=== PATIENT | male | born 1955 ===

== ENCOUNTER 2017-03-29 13:35 | Emergency (ER) | payer MEDICARE ==
[2017-03-29 13:35] VITALS: BMI 29.0
[2017-03-29 14:05] VITALS: BP 96/64; PULSE 101; RESP 18; TEMP 98; O2SAT 96
[2017-03-29 14:53] LABS: BASO # 0.1 K/uL (0.0-0.2); BASO % 0.8 % (0.0-2.0); EOS # 0.3 K/uL (0.0-0.7); LYMPH # 2.9 K/uL (1.0-4.3); LYMPH % 27.6 % (20.0-40.0); MEAN CELL VOLUME 85.6 fL (80.0-94.0); MEAN CORPUSCULAR HEMOGLOBIN 29.5 pg (27.0-31.0); MEAN CORPUSCULAR HGB CONC 34.4 g/dL (33.0-37.0); MEAN PLATELET VOLUME 8.1 fL (7.2-11.7); MONO # 0.7 K/uL (0.0-0.8); MONO % 6.8 % (0.0-10.0); NRBC % 0.3 % (0.0-2.0); RED CELL DISTRIBUTION WIDTH 15.2 % (11.5-14.5); WHITE BLOOD COUNT 10.4 K/uL (4.8-10.8)
--- NOTE | 2017-03-29 14:55 | RAD ---
PROCEDURE: CHEST RADIOGRAPH, 1 VIEW HISTORY: chest pain COMPARISON: 08/11/2015 FINDINGS: LUNGS: Clear. PLEURA: No pneumothorax or pleural fluid seen. CARDIOVASCULAR: Normal. OSSEOUS STRUCTURES: No significant abnormalities. VISUALIZED UPPER ABDOMEN: Normal. OTHER FINDINGS: None. IMPRESSION: No active disease.
--- NOTE | 2017-03-29 14:57 | C.PDOC ---
History Of Present Illness 61 yr old male with PMHx of diabetes, hypertension and high cholesterol, presents to [facility] ER for evaluation of left sided vague chest pain, associated with weakness and SOB. Patient states he has had the symptoms for 1 day with gradual improvement but the symptoms are still present. Patient denies history of heart stent placement, fever, chills, nausea, vomiting, abdominal pain, headache or dizziness. Time Seen by Provider: 03/29/17 14:22 Chief Complaint (Nursing): Chest Pain History Per: Patient History/Exam Limitations: no limitations Onset/Duration Of Symptoms: Days (1) Past Medical History Reviewed: Historical Data, Nursing Documentation, Vital Signs Vital Signs: Last Vital Signs Temp 98 F 03/29/17 14:02 Pulse 101 H 03/29/17 14:02 Resp 18 03/29/17 14:02 BP 96/64 L 03/29/17 14:02 Pulse Ox 96 03/29/17 15:51 - Medical History PMH: Anxiety, Asthma (LAST ATTACK YEARS AGO), CAD, Depression, Diabetes (type 2) , HTN, Hypercholesterolemia, Seizures Family History: States: No Known Family Hx - Social History Hx Tobacco Use: Yes (light smoker) Hx Alcohol Use: No Hx Substance Use: No - Immunization History Hx Tetanus Toxoid Vaccination: Yes Hx Influenza Vaccination: Yes Hx Pneumococcal Vaccination: Yes Review Of Systems Except As Marked, All Systems Reviewed And Found Negative. Constitutional: Negative for: Fever, Chills Cardiovascular: Positive for: Chest Pain (Vague left sided) Respiratory: Positive for: Shortness of Breath Gastrointestinal: Negative for: Nausea, Vomiting, Abdominal Pain Neurological: Negative for: Headache, Dizziness Physical Exam - Physical Exam Appears: Non-toxic, No Acute Distress Skin: Warm, Dry Head: Atraumatic, Normacephalic Eye(s): bilateral: Normal Inspection, PERRL, EOMI Oral Mucosa: Moist Chest: Symmetrical, No Tenderness Cardiovascular: Rhythm Regular, No Murmur Respiratory: Normal Breath Sounds, No Rales, No Rhonchi, No Stridor, No Wheezing Gastrointestinal/Abdominal: Normal Exam, Soft, No Tenderness, No Guarding, No Rebound Extremity: Normal ROM, No Swelling Neurological/Psych: Oriented x3, Normal Speech, Normal Motor ED Course And Treatment - Laboratory Results Result Diagrams: 03/29/17 14:50 03/29/17 14:50 ECG: Interpreted By Me, Viewed By Me ECG Rhythm: Sinus Rhythm ECG Interpretation: Normal Interpretation Of ECG: Normal intervals. Normal axis. No ST/T wave abnormalities. Rate From EC (BPM) O2 Sat by Pulse Oximetry: 96 (RA) Pulse Ox Interpretation: Normal - Other Rad CXR X-Ray: Viewed By Me, Read By Radiologist Interpretation: PROCEDURE: CHEST RADIOGRAPH, 1 VIEW. HISTORY: chest pain. COMPARISON: 08/11/2015. FINDINGS: LUNGS: Clear. PLEURA: No pneumothorax or pleural fluid seen. CARDIOVASCULAR: Normal. OSSEOUS STRUCTURES: No significant abnormalities. VISUALIZED UPPER ABDOMEN: Normal. OTHER FINDINGS: None. IMPRESSION: No active disease. Medical Decision Making Medical Decision Making: IMPRESSION: Chest pain PLAN: * CXR * EKG * Troponin * CBC * CMP * BNP * Aspirin PO Disposition Counseled Patient/Family Regarding: Studies Performed, Diagnosis, Need For Followup - Disposition Referrals: Galo Wiggins MD [Staff Provider] - Disposition: AGAINST MEDICAL ADVICE Disposition Time: 15:48 Condition: STABLE Additional Instructions: follow up with your doctor tomorrow return to hospital if symptoms worsens or progress you are signing out against medical advice and assuming responsibility of your care. You state understanding and do not hold me or hospital staff if symptoms worsens or progress You are welcome to return to hospital at any time. Forms: [facility] (Maltese), General Discharge Instructions - POA Core Measure Indicators: Chest Pain - Clinical Impression Clinical Impression: Chest pain - Scribe Statement The provider has reviewed the documentation as recorded by the Scribe Nat Hui Provider Attestation: All medical record entries made by the Scribe were at my direction and personally dictated by me. I have reviewed the chart and agree that the record accurately reflects my personal performance of the history, physical exam, medical decision making, and the department course for this patient. I have also personally directed, reviewed, and agree with the discharge instructions and disposition.
[2017-03-29 15:12] LABS: ALB/GLOB RATIO 1.1 (1.0-2.1); ALKALINE PHOSPHATASE 94 U/L (38-126); ALT/SGPT 34 U/L (21-72); BILIRUBIN,TOTAL 0.5 mg/dL (0.2-1.3); BLOOD UREA NITROGEN 15 mg/dL (9-20); CARBON DIOXIDE 22 mmol/L (22-30); CHLORIDE 102 mmol/L (98-107); GFR AFRICAN-AMERICAN > 60; GLUCOSE,RANDOM 87 mg/dL (75-110); POTASSIUM 3.8 mmol/L (3.6-5.2); SODIUM 137 mmol/L (132-148); TOTAL PROTEIN 8.2 g/dL (6.3-8.3)
[2017-03-29 15:23] LABS: AST/SGOT 21 U/L (17-59)
--- NOTE | 2017-03-30 10:19 | CARD ---
APPROVED REPORT EKG Measurement Heart [id number] <Conclusion> Normal sinus rhythm Normal ECG
== END 2017-03-29 16:12 | disposition left against medical advice (07) ==
LOC: C.ER 13:35
DX: R07.9 Chest pain, unspecified (principal); E11.9 Type 2 diabetes mellitus without complications; E78.00 Pure hypercholesterolemia, unspecified; I10 Essential (primary) hypertension; Z87.891 Personal history of nicotine dependence

== ENCOUNTER 2018-10-07 12:05 | Emergency (ER) | payer MEDICARE ==
[2018-10-07 12:05] VITALS: BMI 29.0
[2018-10-07 12:26] VITALS: BP 118/80; PULSE 86; RESP 20; TEMP 98.3; O2SAT 97
[2018-10-07] MEDS ORDERED: Bacitracin 500 Units/gm Oint Foilpak UD TOP ONE (13:36)
[2018-10-07] MEDS ORDERED: Bacitracin 500 Units/gm Oint Foilpak UD ONE (13:44)
--- NOTE | 2018-10-07 13:59 | C.PDOC ---
Time Seen by Provider: 10/07/18 13:19 Chief Complaint (Nursing): ENT Problem Past Medical History Vital Signs: Last Vital Signs Temp 98.3 F 10/07/18 12:22 Pulse 86 10/07/18 12:22 Resp 20 10/07/18 12:22 BP 118/80 10/07/18 12:22 Pulse Ox 97 10/07/18 12:22 Primary Care Provider: Galo Wiggins - Medical History PMH: Anxiety, Asthma (LAST ATTACK YEARS AGO), CAD, Depression, Diabetes (type 2), HTN, Hypercholesterolemia, Seizures Denies: Hepatitis, HIV, Chronic Kidney Disease, Sexually Transmitted Disease Family History: States: Unknown Family Hx - Social History Hx Tobacco Use: Yes (light smoker) Hx Alcohol Use: No Hx Substance Use: No - Immunization History Hx Tetanus Toxoid Vaccination: Yes Hx Influenza Vaccination: Yes Hx Pneumococcal Vaccination: Yes ED Course And Treatment O2 Sat by Pulse Oximetry: 97 Disposition Counseled Patient/Family Regarding: Diagnosis, Need For Followup - Disposition Disposition Time: 13:57 Additional Instructions: Por favor clayton un seguimiento maana con roach cirujano sobre la atencin de la herida y la fecha de la revisin posoperatoria. Continuar tomando antibiticos. Aumente Tylenol a 1000 mg cada 6-8 horas para el dolor. Compresas fras en nariz (sobre sandie) cada pocas horas. Please follow up tomorrow with your surgeon about wound care and postoperative check up date. Continue to take antibiotics. Increase Tylenol to 1000 mg every 6-8 hours for painl. Cold compresses to nose (over cloth) every few hours. Forms: Gen Discharge Inst Gabonese, [employer] (Israeli), [employer] (Gabonese) Print Language: CHINESE - Clinical Impression Clinical Impression: Encounter for postoperative wound check
--- NOTE | 2018-10-07 13:59 | C.PDOC ---
History Of Present Illness 63 year old male presents s/p nose surgery on 10/04 at [facility]. Patient complains of pain to his nose. Patient states that he has only been taking Tylenol 500 mg and no percocet. He also complains of trouble breathing through his nose. He denies headache, fever, weakness, or numbness. pt has not yet followed up with his surgeon. Time Seen by Provider: 10/07/18 13:19 Chief Complaint (Nursing): ENT Problem History Per: Patient History/Exam Limitations: None Onset/Duration Of Symptoms: Days (3) Current Symptoms Are (Timing): Still Present Past Medical History Reviewed: Historical Data, Nursing Documentation, Vital Signs Vital Signs: Last Vital Signs Temp 98.3 F 10/07/18 12:22 Pulse 86 10/07/18 12:22 Resp 20 10/07/18 12:22 BP 118/80 10/07/18 12:22 Pulse Ox 97 10/07/18 12:22 Primary Care Provider: Galo Wiggins - Medical History PMH: Anxiety, Asthma (LAST ATTACK YEARS AGO), CAD, Depression, Diabetes (type 2), HTN, Hypercholesterolemia, Seizures Denies: Hepatitis, HIV, Chronic Kidney Disease, Sexually Transmitted Disease Other Surgeries: Nose surgery Family History: States: Unknown Family Hx - Social History Hx Tobacco Use: Yes (light smoker) Hx Alcohol Use: No Hx Substance Use: No - Immunization History Hx Tetanus Toxoid Vaccination: Yes Hx Influenza Vaccination: Yes Hx Pneumococcal Vaccination: Yes Review Of Systems Constitutional: Negative for: Fever, Chills, Weakness ENT: Positive for: Nose Pain, Other (difficulty breathing through nose). Negative for: Nose Discharge Respiratory: Negative for: Shortness of Breath Neurological: Negative for: Weakness, Numbness, Headache Physical Exam - Physical Exam Appears: Well, Non-toxic, No Acute Distress Skin: Other (two scabbed abrasions to the bilateral upper cheeks) Head: Atraumatic, Normacephalic Eye(s): bilateral: Normal Inspection Nose: No Discharge, No Tenderness, Other (bandage covering the bottom of the nose attached to a strap that goes around head; mild swelling, no erythema to external nose. ) Oral Mucosa: Moist Neck: Normal ROM, Supple Chest: Symmetrical, No Deformity Extremity: Capillary Refill <2 Sec (<2 seconds) Neurological/Psych: Oriented x3, Normal Speech, Normal Cognition, Normal Sensation ED Course And Treatment O2 Sat by Pulse Oximetry: 97 (in RA) Pulse Ox Interpretation: Normal Medical Decision Making Medical Decision Making: Impression: 63 year old male with nose pain s/p nose surgery 3 days ago. Initial Plan: Bacitracin Tylenol Discussed with patient that he needs to f/u with his ENT surgeon. Recommended by to apply cold packs to nose and bacitracin to abrasions to cheeks. . Recommended to continue Tylenol and f/u with his surgeon. Patient agrees to plan. Disposition - Disposition Disposition: HOME/ ROUTINE Disposition Time: 13:57 Condition: GOOD Additional Instructions: Por favor clayton un seguimiento maana con roach cirujano sobre la atencin de la herida y la fecha de la revisin posoperatoria. Continuar tomando antibiticos. Aumente Tylenol a 1000 mg cada 6-8 horas para el dolor. Compresas fras en nariz (sobre sandie) cada pocas horas. Please follow up tomorrow with your surgeon about wound care and postoperative check up date. Continue to take antibiotics. Increase Tylenol to 1000 mg every 6-8 hours for painl. Cold compresses to nose (over cloth) every few hours. Forms: Gen Discharge Inst Icelandic, [email or web address] (Citizen Of [place]), [email or web address] (Icelandic) Print Language: JAPANESE - Clinical Impression Clinical Impression: Encounter for postoperative wound check - PA / SATELLITE COMMUNICATIONS OPERATOR / Resident Statement MD/DO has reviewed & agrees with the documentation as recorded. (Chloe Rosen) - Scribe Statement The provider has reviewed the documentation as recorded by the Scribe (Chloe Rosen) All medical record entries made by the Scribe were at my direction and personally dictated by me. I have reviewed the chart and agree that the record accurately reflects my personal performance of the history, physical exam, medical decision making, and the department course for this patient. I have also personally directed, reviewed, and agree with the discharge instructions and disposition.
== END 2018-10-07 14:05 | disposition home or self-care (01) ==
LOC: C.ER 12:05
DX: Z48.01 Encounter for change or removal of surgical wound dressing (principal)